=== PATIENT | male | born 1955 | race Caucasian/White ===

== ENCOUNTER → 2016-05-04 | Outpatient (CLI) | payer OTHER ==
--- NOTE | 2016-05-04 11:49 | US ---
Ultrasound Abdomen Retroperitoneum, Complete Clinical Indications: Right flank pain Comparison: Ultrasound May 2015. Findings: The right kidney measures 12.6 x 6.2 x 6.6 cm. The left kidney measures 12.8 x 6.7 x 5.9 cm. Both kidneys demonstrate no hydronephrosis, definite shadowing calculi, or perinephric fluid. Ri ght renal cortical thickness 1.7 cm and left renal cortical thickness 2.4 cm. In the upper pole right kidney there multiple simple cysts the largest superior-lateral measuring 5.2 x 5.1 x 4.2 cm, previo usly measuring 5.1 x 4.8 x 3.9 cm. In the right kidney upper pole mid aspect there is a 4.5 x 4.1 x 3 .6 cm simple cyst previously measuring 5.1 x 3.6 x 3.1 cm. In the right kidney upper pole medial stevie ex there is a 3.5 x 3.4 x 3.3 cm simple cyst previously measuring 3.7 x 3.5 x 3.6 cm. Left kidney dem onstrates no evidence of cystic or solid lesions. Images of the bladder demonstrate patent bilateral ureteral jets with color flow imaging. Prevoid perez dder volume 149 mL. Postvoid bladder residual is 29 mL. No shadowing bladder calculi. Impression: 1. No hydronephrosis. 2. Multiple simple cyst upper pole right kidney. 3. Postvoid bladder residual 29 mL. 4. No definite shadowing renal calculi or perinephric fluid.
== END ==
LOC: CIMAGING 09:04
PROVIDERS: ATTEND Nurse Practitioner Family
DX: N28.1 Cyst of kidney, acquired (principal)
CPT/HCPCS: 76770-PO

== ENCOUNTER 2016-11-26 18:34 | Emergency (ER) | payer OTHER ==
[2016-11-26 18:40] VITALS: O2SAT 96
[2016-11-26] MEDS ORDERED: ACETAMINOPHEN 325 MG TAB PO ONE (18:59)
--- NOTE | 2016-11-26 19:05 | EDPHY ---
H & P Stated Complaint: fever and rt neck discomfort x 3 days Time Seen by Provider: 11/26/16 18:44 HPI/ROS: CHIEF COMPLAINT: Fever, neck pain, weakness HISTORY OF PRESENT ILLNESS: This is a 61-year-old male with a history of hypertension who has been ill for the last 24 hours or so. He reports a subjective fever. He does not have a thermometer. He states that he feels " hot "and woke sweaty this morning. The house was not particularly hot at that time. She reports a feeling of diffuse weakness. He also reports pain at the top of his shoulder, markedly worse on the right and extending into the right upper arm and right neck. The pain is worse when he moves his head or arm. He has had no trauma the and has not done any heavy lifting. He denies numbness or weakness of the right arm or hand. He describes an area of tenderness and "throbbing "the right lateral neck. He consumes point to a specific area, extending downward from his right ear, that he states is tender to touch. He has not noticed any swelling. He does not have sore throat or difficulty swallowing. He has a mild cough and states that he seems to be losing his voice a bit. He has not had chest pain. He is not having difficulty breathing. He denies abdominal pain, nausea, vomiting, or diarrhea. He has not taken anything for pain or fever. No known insect bites. No recent travel. REVIEW OF SYSTEMS: Delete A ten point review of systems was performed and is negative with the exception of the items mentioned in the HPI. 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 He smokes 1/2 pack of cigarettes daily. General Appearance: Alert. Vital signs reviewed. Afebrile. Eyes: Pupils equal and round, no conjunctival injection, no discharge. Anicteric. ENT, Mouth: Mucous membranes are moist, no oropharyngeal erythema or edema. Dentition appears to be in good repair. Neck: No lymphadenopathy, no thyromegaly, supple. Trachea midline. There is tenderness of the trapezius muscle on the right with palpable muscle spasm. Respiratory: Lungs are clear to auscultation; no wheezes, rales, or rhonchi. Cardiovascular: Regular rate and rhythm; no murmur, rub, or gallop. Gastrointestinal: Abdomen is soft and nontender, no masses or organomegaly, bowel sounds normal. Skin: Warm and dry, no rashes on exposed skin, normal color. Back: Nontender to palpation over the thoracolumbar spine. No CVAT. Extremities: No lower extremity edema, no calf tenderness or swelling. Neurological: Alert and oriented. Moving all four extremities spontaneously. 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 Sensation intact to light touch over both upper extremities. Deep tendon reflexes 2+ in the biceps and triceps bilaterally. Gait normal. Psychiatric: Normal affect. - Personal History Current Tetanus/Diphtheria Vaccine: Unsure - Medical/Surgical History Hx Asthma: No Hx Chronic Respiratory Disease: No Hx Diabetes: No Hx Cardiac Disease: No Hx Renal Disease: No Hx Cirrhosis: No Hx Alcoholism: No Hx HIV/AIDS: No Hx Splenectomy or Spleen Trauma: No Other PMH: med hx-cholesterol,htn. surg-orthroscopic left knee,inguinal hernia - Social History Smoking Status: Never smoked Constitutional: Initial Vital Signs Temperature (C) 37.3 C 11/26/16 18:38 Heart Rate 68 11/26/16 18:38 Respiratory Rate 18 11/26/16 18:38 Blood Pressure 149/84 H 11/26/16 18:38 O2 Sat (%) 96 11/26/16 18:38 O2 Delivery Mode Room Air Allergies/Adverse Reactions: No Known Allergies Allergy (Verified 11/12/14 17:09) Home Medications: Medication Instructions Recorded ATENOLOL 11/10/09 SIMVASTATIN 11/10/09 Aspirin 81mg (OTC) 11/12/14 oxyCODONE/APAP 5/325 [Percocet 1 - 2 tab PO Q4H PRN #10 tab 11/26/16 5/325 (RX)] oxyCODONE/APAP 5/325 [Percocet 1 - 2 tab PO Q4H PRN #10 tab 11/26/16 5/325 (RX)] Medical Decision Making ED Course/Re-evaluation: 61-year-old male with subjective fever (not febrile here), right neck pain and tenderness, diffuse weakness. Features of this suggest a viral syndrome. However this does not explain trapezius muscle spasm. On examination I do not see any abnormalities that would suggest infection involving the muscle, such as necrotizing fasciitis. He does not have meningeal signs and I do not suspect meningitis. His neurologic exam is normal and I do not suspect radiculopathy. He is being given Tylenol 650 mg in this will be followed by ibuprofen 600 mg. He felt no better after receiving Tylenol. He continued to state that he feels feverish. I rechecked his temperature and it was under 37 degrees centigrade. He tells me that he did not eat or drink much today. I offered him the option of trying to force fluids or having a L of normal saline given intravenously; he opts to receive fluid intravenously as he does not feel that he will be able to drink enough right now to adequately hydrate himself. I agree that fluids might make him feel better. Although his oral temperatures remain within normal limits, axillary temperature is 38 degrees. During his stay in the department he received 1 L normal saline, Tylenol 650 mg and ibuprofen 600 mg. he feels well enough to return home and care for himself. I have discussed my thoughts about this being a viral syndrome. He has had no known bites but West Nile virus is a possibility. He is not meningitic or encephalitic. Have not found any focal signs of infection that would indicate a source. His lungs remain clear and is abdomen is soft and nontender on re- examine. He is discharged home with prescription for Percocet which he feels will likely help with his right trapezius muscular pain. He has taken this medication successfully in the past. He is being given a prepack in a prescription for 10 tablets. He understands that this is an opiate medication. I am also recommending Tylenol and ibuprofen. He he is given instructions concerning the overall dosage of Tylenol within 24 hours. We reviewed danger signs. I am recommending follow up with his primary care physician if he is not feeling better in the next 1-2 days and to return to the emergency department if he worsens. Differential Diagnosis: Fever in adults including but not limited to pneumonia, urinary tract infection , viral syndrome, and influenza. - Data Points Medications Given: Discontinued Medications Acetaminophen (Tylenol) 650 mg PO EDNOW ONE Stop: 11/26/16 19:00 Last Admin: 11/26/16 19:06 Dose: 650 mg Sodium Chloride (Ns) 1,000 mls @ 0 mls/hr IV EDNOW ONE; Wide Open PRN Reason: Protocol Stop: 11/26/16 19:31 Last Admin: 11/26/16 19:33 Dose: 1,000 mls Ibuprofen (Motrin) 600 mg PO EDNOW ONE Stop: 11/26/16 19:32 Last Admin: 11/26/16 19:33 Dose: 600 mg Departure - Departure Disposition: Home, Routine, Self-Care Clinical Impression: Viral syndrome Condition: Good Instructions: Viral Syndrome (ED), Fever in Adults (ED) Additional Instructions: Adult Pain & Fever Control: We recommend Acetaminophen (Tylenol) and Ibuprofen (Motrin,Advil) for pain and fever control. When fever is high or pain severe, both drugs can be used at the same time, but at different intervals. Please note the time differences. Your dose is: Acetaminophen 650mg every 4 to 6 hours Ibuprofen 600mg every 8 hours with food OR Note: do not take Acetaminophen with Hydrocodone (Vicodin, Lortab) or Oycodone (Percocet). These medications also contain Acetaminophen. No more than 3000mg of Acetaminophen should be taken in 24 hours (for an adult). Please note the above instructions about taking acetominophen (Tylenol) along with Percocet. Each Percocet contains 325 mg of Tylenol. You should not take more than 3000 mg of Tylenol within a 24 hour time period. You received 650 mg of Tylenol in the emergency department this evening. It is okay for you to take a Percocet when you get home tonight. If you are worse in any way--uncontrollable fever, confusion, persistent headache or neck stiffness, more muscle pain, vomiting, any new or concerning symptoms--please return for re-evaluation. If you are not getting better in the next 1-2 days you should follow-up with Dr. Fulton. Referrals: Giovani Fulton [Primary Care Provider] - As per Instructions Prescriptions: oxyCODONE/APAP 5/325 [Percocet 5/325 (RX)] 1 - 2 tab PO Q4H PRN #10 tab PRN Reason: Pain, Severe oxyCODONE/APAP 5/325 [Percocet 5/325 (RX)] 1 - 2 tab PO Q4H PRN #10 tab PRN Reason: Pain, Severe
[2016-11-26] MEDS ORDERED: NS 1,000 ML IV ONE (19:30)
[2016-11-26] MEDS ORDERED: IBUPROFEN 600 MG TAB PO ONE (19:31)
[2016-11-26 20:03] VITALS: PULSE 38
[2016-11-26] MEDS ORDERED: HYDROCOD/APAP 5/325 PREPACK#6 BTL TAKEHOME ONE (20:43)
[2016-11-26] MEDS ORDERED: OXYCODONE/APAP 5/325MG PREPACK#4 BTL TAKEHOME ONE ×2 (20:50→20:51)
[2016-11-26 21:03] VITALS: BP 132/70; RESP 64; TEMP 99.7
== END 2016-11-26 21:02 | disposition home or self-care (01) ==
LOC: CED 18:34
DX: B34.9 Viral infection, unspecified (principal); I10 Essential (primary) hypertension; E86.9 Volume depletion, unspecified; Z79.82 Long term (current) use of aspirin

== ENCOUNTER → 2017-09-21 | Outpatient (CLI) | payer OTHER ==
[~2017-09-21] MED LIST: IOPAMIDOL (ISOVUE-300) 100 ML BTL ONE
== END ==
LOC: CIMAGING 14:05
PROVIDERS: ATTEND Family Medicine
DX: R10.31 Right lower quadrant pain (principal); R91.1 Solitary pulmonary nodule; Z87.19 Personal history of other diseases of the digestive system; Z98.890 Other specified postprocedural states
CPT/HCPCS: 74177-PO; Q9967

== ENCOUNTER → 2017-12-25 | Outpatient (CLI) | payer OTHER | LOC: CIMAGING 12-24 19:11 | PROVIDERS: ATTEND Family Medicine | DX: K40.90 Unilateral inguinal hernia, without obstruction or gangrene, not specified as recurrent (principal); N28.1 Cyst of kidney, acquired | CPT/HCPCS: 76705-PO ==

== ENCOUNTER → 2018-09-04 | Outpatient (CLI) | payer OTHER | LOC: CIMAGING 13:57 ==